=== PATIENT | male | born 1965 | race Two or more races ===

== ENCOUNTER 2017-03-16 13:24 | Emergency (ER) | payer OTHER ==
[~2017-03-16] VITALS: Ht 167.6 cm; Wt 99.8 kg
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
== END 2017-03-16 15:15 | disposition home or self-care (01) ==
LOC: CFTX 13:24 → CED 13:24 → CFTX 14:57
DX: S13.4XXA Sprain of ligaments of cervical spine, initial encounter (principal); E11.9 Type 2 diabetes mellitus without complications; I10 Essential (primary) hypertension; V49.40XA Driver injured in collision with unspecified motor vehicles in traffic accident, initial encounter; Y92.410 Unspecified street and highway as the place of occurrence of the external cause
CPT/HCPCS: 72040; 72072; 72100; 99283